=== PATIENT | female | born 1990 | race Caucasian/White ===

== ENCOUNTER 2020-03-06 21:33 | Emergency (ER) | payer OTHER ==
[~2020-03-06] VITALS: Ht 149.9 cm; Wt 93.0 kg
--- NOTE | 2020-03-06 22:10 | ED Abdominal Pain ---
General Chief Complaint: Abdominal/GI Problems Stated Complaint: N/V Nursing Triage Note: PT AMBULATE TO ROOM 06 WITH C/O N/V X2 WEEKS. PT REPORTS TAKING REGLAN, ZOFRAN, AND PEPCID WITHOUT RELIEF. PT STATES SHE HAS HAS AN APPT WITH PER PCP THIS COMING SUNDAY AND THAT THE NAUSEA IS TOO BAD TO WAIT. PT REPORTS GALLBLADDER REMOVED IN 2007. Sepsis Screen: No Definite Risk Source of Information: Patient Exam Limitations: No Limitations History of Present Illness Date Seen by Provider: Mar 06, 2020 Time Seen by Provider: 22:00 Initial Comments Patient is a 29-year-old female who presents to the emergency department today with a chief complaint of epigastric abdominal pain and nausea. Patient states that she has had intermittent severe nausea for about a month. Patient states she was diagnosed with food poisoning 1 month ago and given Reglan for nausea. Patient states that she is continue to try and use it to alleviate her nausea but has not. Patient tells me she was diagnosed with ulcers when she was 15 years old. Patient states she is also attempted to use Zofran without relief of nausea symptoms. Patient denies any fevers, chills, URI symptoms. She states she has epigastric and right upper quadrant abdominal pain. She also tells me that she has had elevated liver function studies for "a while". She denies a history of pancreatitis. She does not drink alcohol on a regular basis. Patient had a cholecystectomy when she was 17 years of age due to a malfunctioning gallbladder. No reported history of gallstones. Patient states that she has had intermittent diarrhea and formed stools over the course the last few hours. She denies any black or bloody stools and she denies any bloody emesis. Patient states she has had a couple of episodes of vomiting this evening. All other review of systems reviewed and negative except as stated. Timing/Duration: Constant, Getting Worse Severity/Quality: Severe, Burning Location: Epigastric Radiation: No Radiation Activities at Onset: None Associated Symptoms: No Back Pain, No Fever/Chills Allergies and Home Medications Allergies Coded Allergies: cefaclor (Verified Allergy, Unknown, 03/06/20) Home Medications Promethazine HCl 25 Mg Tablet, 25 MG PO Q6H PRN for NAUSEA/VOMITING Prescribed by: ODILIA JOHNSON on 03/06/20 7412 Sucralfate 1 Gm Tablet, 1 GM PO ACHS Prescribed by: ODILIA JOHNSON on 03/06/20 2900 Patient Home Medication List Home Medication List Reviewed: Yes Review of Systems Review of Systems Constitutional: no symptoms reported EENTM: No Symptoms Reported Respiratory: No Symptoms Reported Cardiovascular: No Symptoms Reported Gastrointestinal: Abdominal Pain, Diarrhea, Nausea, Poor Appetite Genitourinary: No Symptoms Reported Musculoskeletal: no symptoms reported Skin: no symptoms reported All Other Systems Reviewed Negative Unless Noted: Yes Past Hsesleg-Fmcgjc-Idecwm Hx Patient Social History Alcohol Use: Occasionally Uses Recreational Drug Use: No Smoking Status: Never a Smoker 2nd Hand Smoke Exposure: No Recent Foreign Travel: No Contact w/Someone Who Travel: No Recent Infectious Disease Expo: No Recent Hopitalizations: No Physical Abuse: No Sexual Abuse: No Mistreated: No Fear: No Seasonal Allergies Seasonal Allergies: Yes Past Medical History Surgeries: Yes Adenoidectomy, Section, Gallbladder, Tonsillectomy Respiratory: No Cardiac: No Neurological: Yes Headaches /Migraines Genitourinary: No Gastrointestinal: Yes Ulcer, Gall Bladder Disease Musculoskeletal: No Endocrine: No HEENT: No Cancer: No Psychosocial: No Integumentary: No Blood Disorders: No Physical Exam Vital Signs Vital Signs - First Documented 03/06/20 21:46 Temp 37.0 Pulse 87 Resp 19 B/P (MAP) 113/76 (88) O2 Delivery Room Air Capillary Refill : Less Than 3 Seconds Height/Weight/BMI Height: '" Weight: lbs. oz. kg; 41.00 BMI Method: General Appearance: WD/WN, no apparent distress Neck: full range of motion Respiratory: lungs clear, normal breath sounds, no respiratory distress, no accessory muscle use Cardiovascular: regular rate, rhythm, no murmur Gastrointestinal: soft, abnormal bowel sounds (hypoactive BS), tenderness (epigastric and RUQ) Neurologic/Psychiatric: alert, normal mood/affect, oriented x 3 Skin: normal color, warm/dry Progress/Results/Core Measures Results/Orders Lab Results Laboratory Tests Test 03/06/20 22:04 03/06/20 22:07 Range/Units White Blood Count 5.7 4.3-11.0 10^3/uL Red Blood Count 3.94 3.80-5.11 10^6/uL Hemoglobin 12.4 11.5-16.0 g/dL Hematocrit 37 35-52 % Mean Corpuscular Volume 95 80-99 fL Mean Corpuscular Hemoglobin 32 25-34 pg Mean Corpuscular Hemoglobin Concent 33 32-36 g/dL Red Cell Distribution Width 13.2 10.0-14.5 % Platelet Count 319 130-400 10^3/uL Mean Platelet Volume 11.1 9.0-12.2 fL Immature Granulocyte % (Auto) 0 % Neutrophils (%) (Auto) 66 42-75 % Lymphocytes (%) (Auto) 23 12-44 % Monocytes (%) (Auto) 9 0-12 % Eosinophils (%) (Auto) 1 0-10 % Basophils (%) (Auto) 1 0-10 % Neutrophils # (Auto) 3.8 1.8-7.8 10^3/uL Lymphocytes # (Auto) 1.3 1.0-4.0 10^3/uL Monocytes # (Auto) 0.5 0.0-1.0 10^3/uL Eosinophils # (Auto) 0.0 0.0-0.3 10^3/uL Basophils # (Auto) 0.0 0.0-0.1 10^3/uL Immature Granulocyte # (Auto) 0.0 0.0-0.1 10^3/uL Sodium Level 137 135-145 MMOL/L Potassium Level 4.2 3.6-5.0 MMOL/L Chloride Level 106 98-107 MMOL/L Carbon Dioxide Level 21 21-32 MMOL/L Anion Gap 10 5-14 MMOL/L Blood Urea Nitrogen 7 7-18 MG/DL Creatinine 0.75 0.60-1.30 MG/DL Estimat Glomerular Filtration Rate > 60 BUN/Creatinine Ratio 9 Glucose Level 110 H 70-105 MG/DL Calcium Level 8.9 8.5-10.1 MG/DL Corrected Calcium 8.7 8.5-10.1 MG/DL Total Bilirubin 0.3 0.1-1.0 MG/DL Aspartate Amino Transf (AST/SGOT) 41 H 5-34 U/L Alanine Aminotransferase (ALT/SGPT) 56 H 0-55 U/L Alkaline Phosphatase 74 40-136 U/L Total Protein 6.9 6.4-8.2 GM/DL Albumin 4.2 3.2-4.5 GM/DL Lipase 32 8-78 U/L Urine Test NEGATIVE NEGATIVE My Orders Orders - ODILIA JOHNSON MD Ed Iv/Invasive Line Start (03/06/20 22:02) Cbc With Automated Diff (03/06/20 22:02) Comprehensive Metabolic Panel (03/06/20 22:02) Lipase (03/06/20 22:02) Hcg,Qualitative Urine (03/06/20 22:02) Ns Iv 1000 Ml (Sodium Chloride 0.9%) (03/06/20 22:15) Promethazine Injection (Phenergan Injec (03/06/20 22:15) Sucralfate Tablet (Carafate Tablet) (03/06/20 22:15) Pantoprazole Injection (Protonix Injecti (03/06/20 23:30) Ondansetron Injection (Zofran Injectio (03/06/20 23:30) Fentanyl Injection (Sublimaze Injection (03/07/20 00:15) Diphenhydramine Injection (Benadryl Inje (03/07/20 00:45) Medications Given in ED Current Medications Medications Dose Ordered Sig/Shreya Route Start Time Stop Time Status Last Admin Dose Admin Ondansetron HCl 8 mg ONCE ONCE IVP 03/06/20 23:30 03/06/20 23:31 DC 03/06/20 23:34 8 MG Pantoprazole 40 mg ONCE ONCE IV 03/06/20 23:30 03/06/20 23:31 DC 03/06/20 23:34 40 MG Promethazine HCl 25 mg ONCE ONCE IVP 03/06/20 22:15 03/06/20 22:16 DC 03/06/20 22:11 25 MG Sucralfate 1 gm ONCE ONCE PO 03/06/20 22:15 03/06/20 22:16 DC 03/06/20 22:11 1 GM Vital Signs/I&O 03/06/20 21:46 Temp 37.0 Pulse 87 Resp 19 B/P (MAP) 113/76 (88) O2 Delivery Room Air 03/07/20 00:00 Intake Total 1000 ml Balance 1000 ml Blood Pressure Mean: 88 Progress Progress Note : Time: 23:37 Progress Note Patient is still having nausea, evaluated her labs they are all within normal limits with marginally elevated liver functions. No evidence of pancreatitis. White blood cell count is normal. Suspect that the patient is having abdominal pain secondary to history of ulcers. She cannot tolerate the Carafate secondary to her nausea. We will add Protonix and some Zofran. Plan to discharge the patient home with prescription for Phenergan and Carafate. She has follow-up with her primary care physician on Sunday of this next week. We will give her good return precautions. She is comfortable with the plan of care all questions are sought and answered and she is stable for discharge. 0040 Patient's nausea is improved, she got the jitters from the Phenergan. We will give her 25 mg of Benadryl IV prior to discharge. Patient is comfortable with this plan of care and ready to go home. Departure Impression Primary Impression: Abdominal pain Qualified Codes: R10.13 - Epigastric pain Additional Impression: Nausea and vomiting Qualified Codes: R11.14 - Bilious vomiting Disposition: HOME, SELF-CARE Condition: Stable Departure-Patient Inst. Referrals: NO,LOCAL PHYSICIAN (PCP/Family) Primary Care Physician Patient Instructions: Abdominal Pain, Adult ED Add. Discharge Instructions: Drink plenty of fluids to stay well-hydrated. Take your nausea medications as needed for nausea and vomiting. Avoid spicy foods. I have also given your prescription for Carafate for home. Take this 30 minutes prior to eating and at bedtime. Keep your follow-up appointment with your primary care physician next week. Return to the emergency room for any worsening symptoms especially with fever, worsening pain or other emergent concerns. Scripts Sucralfate (Carafate) 1 Gm Tablet 1 GM PO ACHS, #120 TAB Prov: ODILIA JOHNSON MD 03/06/20 Promethazine HCl (Promethazine Tablet) 25 Mg Tablet 25 MG PO Q6H PRN for NAUSEA/VOMITING, #30 TAB Prov: ODILIA JOHNSON MD 03/06/20 ODILIA JOHNSON MD Mar 06, 2020 22:10
[2020-03-06 22:14] LABS: BASOPHILS % (AUTO) 1 % (0-10); EOSINOPHILS % (AUTO) 1 % (0-10); HEMATOCRIT 37 % (35-52); HEMOGLOBIN 12.4 g/dL (11.5-16.0); LYMPHOCYTES # (AUTO) 1.3 10^3/uL (1.0-4.0); LYMPHOCYTES % (AUTO) 23 % (12-44); MEAN CORPUSCULAR HEMOGLOBIN 32 pg (25-34); MEAN CORPUSCULAR HGB CONC 33 g/dL (32-36); MEAN CORPUSCULAR VOLUME 95 fL (80-99); MEAN PLATELET VOLUME 11.1 fL (9.0-12.2); MONOCYTES # (AUTO) 0.5 10^3/uL (0.0-1.0); MONOCYTES % (AUTO) 9 % (0-12); NEUTROPHILS # (AUTO) 3.8 10^3/uL (1.8-7.8); NEUTROPHILS % (AUTO) 66 % (42-75); PLATELET COUNT 319 10^3/uL (130-400); WHITE BLOOD COUNT 5.7 10^3/uL (4.3-11.0)
[2020-03-06] MEDS ORDERED: PROMETHAZINE INJ 25 MG/ML (PHENERGAN) AMP IVP ONE (22:15)
[2020-03-06] MEDS ORDERED: SUCRALFATE 1 GM (CARAFATE) TAB PO ONE (22:15)
[2020-03-06] MEDS ORDERED: NS IV 1000 ML 1,000 ML IV SCH (22:15)
[2020-03-06 22:38] LABS: ALANINE AMINOTRANSFERASE 56 U/L (0-55); ALBUMIN 4.2 GM/DL (3.2-4.5); ALKALINE PHOSPHATASE 74 U/L (40-136); BILIRUBIN,TOTAL 0.3 MG/DL (0.1-1.0); BUN/CREATININE RATIO 9; CALCIUM 8.9 MG/DL (8.5-10.1); CARBON DIOXIDE 21 MMOL/L (21-32); CHLORIDE 106 MMOL/L (98-107); CREATININE SERUM 0.75 MG/DL (0.60-1.30); GFR ESTIMATED > 60; GLUCOSE 110 MG/DL (70-105); LIPASE 32 U/L (8-78); POTASSIUM 4.2 MMOL/L (3.6-5.0); SODIUM 137 MMOL/L (135-145); TOTAL PROTEIN 6.9 GM/DL (6.4-8.2)
[2020-03-06] MEDS ORDERED: ONDANSETRON 4 MG/2 ML (SDV) Z0FRAN IVP ONE (23:30)
[2020-03-06] MEDS ORDERED: PANTOPRAZOLE 40 MG (PROTONIX) VIAL IV ONE (23:30)
[2020-03-06] MEDS ORDERED: SUCR1TAB36 PO (23:42)
[2020-03-06] MEDS ORDERED: PROM25TA14 PO (23:42)
[2020-03-07] MEDS ORDERED: fentaNYL INJECTION 100 MCG/2 ML AMP IVP PRN (00:15)
[2020-03-07] MEDS ORDERED: diphenhydrAMINE 50 MG/ML INJ (BENADRYL) IVP ONE (00:45)
[2020-03-07 00:58] VITALS: BP 113/61
== END 2020-03-07 01:01 | disposition home or self-care (01) ==
LOC: ER 21:35
DX: R10.13 Epigastric pain (principal); R11.2 Nausea with vomiting, unspecified; Z88.8 Allergy status to other drugs, medicaments and biological substances
CPT/HCPCS: 36415; 80053; 83690; 84703; 85025; 99282